=== PATIENT | female | born 1990 | race African-American/Black ===

== ENCOUNTER 2025-01-15 17:57 | Emergency (ER) | payer MEDICAID ==
[~2025-01-15] VITALS: Ht 172.7 cm; Wt 82.0 kg
[2025-01-15 18:01] VITALS: O2SAT 99
[2025-01-15] MEDS ORDERED: ACET-2708 MT (18:49)
[2025-01-15] MEDS: ACETAMINOPHEN 325MG TABLET PO ONE (19:12)
[2025-01-15] MEDS: BACITRACIN ZINC OINT UDPKT TOP ONE (19:12)
[2025-01-15 19:31] VITALS: BP 113/83; PULSE 87; RESP 16; TEMP 37.1; O2SAT 100
== END 2025-01-15 19:48 | disposition home or self-care (01) ==
LOC: ER 17:57
DX: M79.632 Pain in left forearm (principal); Z79.899 Other long term (current) drug therapy
CPT/HCPCS: 73090; 99283